=== PATIENT | female | born 1990 | race Hispanic/Latino ===

== ENCOUNTER 2016-04-21 04:51 | Emergency (ER) | payer OTHER ==
[~2016-04-21] VITALS: Ht 154.9 cm; Wt 77.3 kg
[~2016-04-21 04:51] MED LIST: Docusate Sodium PO; Hydrocodone/Acetaminophen PO; Ibuprofen PO; NOMED
[2016-04-21 05:05] VITALS: BP 146/81; PULSE 120; RESP 20; O2SAT 96
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
[2016-04-21 06:33] VITALS: PULSE 95; RESP 16; O2SAT 100
== END 2016-04-21 06:34 | disposition home or self-care (01) ==
LOC: SED 04:51
DX: F10.120 Alcohol abuse with intoxication, uncomplicated (principal); F41.0 Panic disorder [episodic paroxysmal anxiety]; S91.311A Laceration without foreign body, right foot, initial encounter; S81.812A Laceration without foreign body, left lower leg, initial encounter; X78.0XXA Intentional self-harm by sharp glass, initial encounter; Y92.810 Car as the place of occurrence of the external cause; Y93.89 Activity, other specified; Y99.8 Other external cause status

== ENCOUNTER 2016-09-16 16:14 | Emergency (ER) | payer OTHER ==
[~2016-09-16] VITALS: Ht 154.9 cm; Wt 81.8 kg
[2016-09-16 16:17] VITALS: BP 112/77; PULSE 76; RESP 17; O2SAT 98
--- NOTE | 2016-09-16 16:26 | ED.REPORT ---
HPI-Headache Date of Service Sep 16, 2016 ED Provider: Sona Packer History of Present Illness: 26-year-old female here for headache 1 week. She is photophobic and sensitive to sound. Pain Increases slightly with ocular movement side to side. Ibuprofen and Tylenol without any improvement. She is a history of migraines although this feels different to her. No fevers. No pain with movement of her neck. Minimal nausea. This pain is sharp. No confusion, dizziness. She does occasionally feel lightheaded. Over the past few weeks patient has had intermittent episodes of sharp sternal chest pain. Sensations last for a few seconds. No Palpitations, lower extremity swelling or shortness of breath noted Nursing Notes Stated Complaint: HEADACHE [id number] Chief Complaint: General Complaint Nursing Notes Reviewed: Yes Allergies: Coded Allergies: No Known Allergies (Unverified , 09/22/13) Scheduled ([Docusate Sodium]) 100 MG CAPSULE 100 MG PO BID Scheduled PRN ([Hydrocodone/Acetaminophen]) 1 TAB TABLET 1-2 TAB PO Q4H PRN PRN For Pain ([Ibuprofen]) 600 MG TABLET 600 MG PO Q6H PRN PRN For Mild Pain Miscellaneous Medications No Historical Medication (No Historical Medication) Ea General Time Seen by MD: 16:23 Chief Complaint Headache Hx Obtained From: Patient Arrived By: Walk-in Sudden in Onset?: No Onset Occurred: 1 week ago Symptom Duration: Constant Location: : Frontal left: Frontal right: Occipital left: Occipital right Quality: Sharp Severity: Current: Severe Severity: Maximum: Severe Recent Healthcare: No recent doctor visit Similar Sx Previous: Yes Past Medical History Past Medical History Notes: migraines Past Medical History none Past Surgical History none Smoking History Never Smoker Social History Alcohol Use: "Social" Drug Use: Denies drug use Other Social History: Good social support, Lives with children, Local resident Ambulatory Status Independent Review of Systems Basic Review of Systems Respiratory: No shortness of breath, No cough, No wheeze Constitutional: Denies: Fatigue, Fever Eyes: Reports: Photophobia, Denies: Blurred bilateral, Eye pain bilateral, Visual loss bilateral GI: Reports: Nausea Musculoskeletal: Denies: Neck pain Neurologic: Reports: Headache, Lightheaded, Denies: Change LOC, Confusion, Slurred speech, Vision change Psychiatric: Denies: Agitation, Anxiety, Change mental status, Confusion Complete sys rev & neg: except as marked. Physical Exam Initial Vital Signs Vital Signs (First) Date Time Temp Pulse Resp B/P Pulse Ox O2 Delivery O2 Flow Rate FiO2 09/16/16 16:17 36.6 76 17 112/77 98 Room Air Initial VS: Reviewed, Vital signs normal General/Constitutional: Awake, Alert Head / Eyes: Normocephalic, PERRL, EOMI, No nystagmus, No photophobia, Conjunctiva NL, Temporal arteries NL Moderate pain ocular movements. No periorbital tenderness. No temporal artery tenderness. Neck: Supple, No meningismus, Full range of motion, No swelling, Non-tender, No masses Neurologic: Oriented X3, Speech NL, No motor deficits, No sensory deficits, CN II - XII intact, Cerebellar NL ENT: Airway patent, Mucous membranes moist, Pharynx NL, No sinus tenderness Respiratory / Chest: Breath sounds NL, Breath sounds = bilat, No respiratory distress, No rales, No rhonchi, No wheezing Cardiovascular: Heart rate NL, Regular rhythm, Heart sounds NL, Peripheral circulation NL Abdomen: Soft, Non-tender, No guarding, No rebound Interpretation & Diagnostics Lab Results Interpretation Result Diagram: 09/16/16 1700 09/16/16 1700 Test 09/16/16 16:37 09/16/16 17:00 Urine Color Yellow (YELLOW) Urine Appearance Hazy (CLEAR,HAZY) Urine pH 5.5 (5.0-8.0) Urine Specific [place] 1.010 (1.003-1.035) Urine Protein Negativemg/dL (NEG,TRACE) Urine Glucose (UA) Negativemg/dL (NEGATIVE) Urine Ketones Negativemg/dL (NEGATIVE) Urine Occult Blood Trace (NEGATIVE) Urine Nitrite Negative (NEGATIVE) Urine Bilirubin Negative (NEGATIVE) Urine Urobilinogen Normalmg/dL (NORMAL) Urine Leukocyte Esterase Trace (NEGATIVE) Urine RBC 0-2/hpf (0-2) Urine WBC 0-5/hpf (0-5) Urine Epithelial Cells Many/hpf (NONE-MOD) Urine Crystals None seen (NONE SEEN) Urine Bacteria Few/hpf (NONE-FEW) Urine Hyaline Casts None/lpf (NONE) Urine Granular Casts None seen (NONE SEEN) Urine Waxy Casts None seen (NONE SEEN) Urine Red Blood Cell Casts None seen (NONE SEEN) Urine White Blood Cell Casts None seen (NONE SEEN) Urine Mucus None seen (None Seen) Urine Trichomonas None seen (NONE SEEN) Urine Yeast None (NONE SEEN) Urinalysis Comment None Urine Culture Reflexed Indicated White Blood Count 6.9th/mm3 (3.8-10.1) Red Blood Count 4.81mil/mm3 (3.90-5.20) Hemoglobin 12.3g/dL (12.0-15.6) Hematocrit 37.9% (35.0-46.0) Mean Corpuscular Volume 78.8fL (81-100) Mean Corpuscular Hemoglobin 25.6pg (27.0-35.0) Mean Corpuscular Hemoglobin Concent 32.5% (32.0-37.0) Red Cell Distribution Width 15.5% (12.3-15.4) Platelet Count 414bil/L (150-400) Neutrophils (%) (Auto) 48.2% (40-74) Lymphocytes (%) (Auto) 39.8% (14-46) Monocytes (%) (Auto) 7.9% (4-12) Eosinophils (%) (Auto) 3.5% (0-5) Basophils (%) (Auto) 0.6% (0-3) Sodium Level 137mEq/L (134-144) Potassium Level 4.1mEq/L (3.5-5.2) Chloride Level 101mEq/L (97-108) Carbon Dioxide Level 20mmol/L (18-29) Blood Urea Nitrogen 15mg/dL (6-20) Creatinine 0.56mg/dL (0.57-1.00) Estimat Glomerular Filtration Rate 186mL/min (>59) Glucose Level 102mg/dL (60-99) Calcium Level 9.4mg/dL (8.5-10.1) Total Bilirubin 0.2mg/dL (0.0-1.2) Aspartate Amino Transf (AST/SGOT) 18U/L (0-50) Alanine Aminotransferase (ALT/SGPT) 13U/L (0-32) Alkaline Phosphatase 99U/L (25-150) Troponin T < 0.010ug/L (0.0-0.011) Total Protein 7.1g/dL (6.4-8.4) Albumin 4.2g/dL (3.4-5.0) Re-Eval/Medical Decision Med Decision/Clinical Course Patient states headache is down to 7 out of 10 but would like more pain meds. Nausea gone. 1900- after 0.5 mg of Dilaudid patient states her headache is all over and she is ready to go home. She has been up into the bathroom without any increasing head pain and feels ready to go. Discharge & Departure Shift Change Sign-Out Response to Therapy: Improved Impression: Primary Impression: Migraine headache Migraine type: without aura Status migrainosus presence: without status migrainosus Intractability: not intractable Qualified Code: G43.009 - Migraine without aura, not intractable, without status migrainosus Additional Impression: Non-cardiac chest pain Disposition: Home Discharge Condition All VS Reviewed: Yes Condition: Stable Patient Instructions: Migraine Headache (ED) Additional Instructions: Take ibuprofen 600 mg 3 times a day as needed for head pain. Return if altered mental status, worsening head pain, fevers or any change in condition. Follow up with your PCP in 2 days for further migraine care. Return to ER if you get worsening chest pain or pressure, shortness of breath, palpitations or any other concerning chest pains. Referrals: Leonor Velasquez (PCP) EDSupervising Provider for [facility]: Isiah Briones Linnea K ARNP Sep 16, 2016 16:26
[2016-09-16] MEDS ORDERED: MetoCLOpramide 5 mg/mL 2 mL Inj IVPUSH PRN (16:40)
[2016-09-16] MEDS ORDERED: Ketorolac 15 mg/mL Inj IVPUSH ONE (16:40)
[2016-09-16] MEDS ORDERED: 0.9% Sodium Chloride 1,000 ML IV ONE (16:40)
[2016-09-16 17:09] LABS: APPEARANCE,URINE HAZY (CLEAR,HAZY); COLOR,URINE YELLOW (YELLOW); OCCULT BLOOD,URINE TRACE (NEGATIVE); PH,URINE 5.5 (5.0-8.0); UROBILINOGEN,URINE NORMAL (NORMAL)
[2016-09-16 17:42] LABS: BASOPHILS % (AUTO) 0.6 % (0-3); EOSINOPHILS % (AUTO) 3.5 % (0-5); MONOCYTES % (AUTO) 7.9 % (4-12); Mean Corpuscular Hemoglobin 25.6 pg (27.0-35.0); Mean Corpuscular Volume 78.8 fL (81-100); NEUTROPHILS % (AUTO) 48.2 % (40-74); Platelet Count 414 bil/L (150-400)
[2016-09-16 18:09] LABS: TROPONIN T < 0.010 ug/L (0.0-0.011)
[2016-09-16] MEDS ORDERED: HYDROmorphone 0.5 mg/0.5 mL iSecure Syringe IVPUSH ONE (18:10)
[2016-09-16 19:12] VITALS: BP 116/76; PULSE 72; RESP 18; O2SAT 98
== END 2016-09-16 19:13 | disposition home or self-care (01) ==
LOC: SED 16:14
DX: G43.009 Migraine without aura, not intractable, without status migrainosus (principal); R07.89 Other chest pain
CPT/HCPCS: 36415; 80053; 81000; 81025; 84484; 85025; 87086; 87088; 93005; 96374; 96375; 99285; J1170; J1200; J1885; J2765; J7030